=== PATIENT | male | born 1985 | race Caucasian/White ===

== ENCOUNTER 2023-12-21 09:58 | Day surgery (SDC) | payer OTHER ==
--- NOTE | 2023-12-21 08:21 | HP ---
HISTORY AND PHYSICAL HISTORY OF PRESENT ILLNESS: Patient has a history of right upper quadrant pain, some nausea and vomiting, and stool urgency. He did have a CT scan that showed cholelithiasis. PAST MEDICAL HISTORY: Denied chronic illnesses. HOME MEDICATIONS: No medications on a regular basis. ALLERGIES: Penicillin. PAST SURGICAL HISTORY: He had shoulder surgery in the past. He had rotator cuff surgery in the past. SOCIAL HISTORY: Former smoker. Occasional alcohol use. FAMILY HISTORY: Negative with regard to this problem. REVIEW OF SYSTEMS: Twelve systems reviewed. No chest pain or palpitations. Other systems negative or noncontributory as above and per preadmission questionnaire. PHYSICAL EXAMINATION: GENERAL: Height 6 feet. BMI 27.8. No acute distress. HEENT: Sclerae nonicteric. Extraocular movements intact. Oral mucous membranes moist. NECK: No JVD. CHEST: Equal excursion, nonlabored breathing. CARDIOVASCULAR: Regular rate and rhythm. ABDOMEN: Soft. Some mild tenderness in right upper quadrant. No peritoneal signs. SKIN: Dry. EXTREMITIES: No cyanosis or edema. NEUROLOGIC: Alert and oriented, moving all extremities symmetrically. PSYCHIATRIC: Appropriate mood and affect. IMPRESSION: Right upper quadrant pain, nausea and vomiting, stool urgency. I feel he has acute exacerbation of chronic cholecystitis, symptomatic cholelithiasis. Recommend cholecystectomy. He was shown the gallbladder pamphlet. Explained the procedure in detail including but not limited to risk of bleeding and infection; risk of trocar injury and hernia; risk of bile leak or bile duct injury, retained stone or sludge possibly requiring further procedure either ERCP or open procedure; general risk of anesthesia, DVT, PE, pneumonia; perioperative risk of aches and pains, bloating, constipation or loose stools possibly chronic in nature; possibility of no improvement of preoperative symptoms possibly requiring further workup, other studies, endoscopy, or referrals. He understands, agrees with planned procedure. We will proceed with laparoscopic cholecystectomy, possibly open, as an outpatient.
[2023-12-21] MEDS ORDERED: CLINDAMYCIN-D5W 900 MG/50 ML*** 900 MG/50 ML BAG IV ONE (10:09)
[2023-12-21] MEDS ORDERED: Levofloxacin 500MG/100ML D5W 500 MG/100 ML BAG IV ONE (10:09)
[2023-12-21] MEDS: Transderm Scop 1.5MG Patch TOP PRN (10:14)
[2023-12-21] MEDS: CLINDAMYCIN-D5W 900 MG/50 ML*** 900 MG/50 ML BAG IV SCH (10:14)
[2023-12-21] MEDS: Levofloxacin 500MG/100ML D5W 500 MG/100 ML BAG IV ONE (10:14)
[2023-12-21] MEDS: Lactated Ringers 1,000 ML IV SCH (10:15)
[2023-12-21 10:23] VITALS: RESP 16; O2SAT 98
[2023-12-21] MEDS ORDERED: SUBLIMAZE 100 MCG/2 ML ONE ×2 (12:32→12:43)
[2023-12-21] MEDS ORDERED: Versed 2 MG/2 ML Injection ONE (12:32)
[2023-12-21] MEDS ORDERED: DIPRIVAN 200 MG/20 ML IV ONE (12:32)
[2023-12-21] MEDS ORDERED: ROCURONIUM BROMIDE IV ONE (12:32)
[2023-12-21] MEDS ORDERED: DILAUDID 2 MG INJECTION ONE (13:30)
[2023-12-21] MEDS ORDERED: BRIDION 200MG/2ML IV ONE (13:34)
[2023-12-21] MEDS ORDERED: Zofran 4 MG/2 ML VIAL ONE (14:13)
[2023-12-21 14:52] VITALS: TEMP 97.5
[2023-12-21] MEDS ORDERED: Compazine 10 MG/2 ML ONE (15:29)
[2023-12-21] MEDS: Compazine 10 MG/2 ML IV ONE (15:33)
[2023-12-21 15:42] VITALS: BP 125/87; PULSE 62
--- NOTE | 2023-12-22 10:10 | OP ---
SURGERY DATE/TIME: 12/21/2023 2162 - [id number] PREOPERATIVE DIAGNOSIS: Acute exacerbation of chronic cholecystitis and symptomatic cholelithiasis. POSTOPERATIVE DIAGNOSIS: Acute exacerbation of chronic cholecystitis and symptomatic cholelithiasis. PROCEDURE: Laparoscopic cholecystectomy. SURGEON: Ej Carrillo MD ANESTHESIA: General. ESTIMATED BLOOD LOSS: Minimal. INDICATIONS: As above. Risks and benefits explained in detail, but not limited to. Consent obtained. DESCRIPTION OF PROCEDURE AND FINDINGS: Patient was taken to the operating room. General anesthesia was induced. Prepped and draped in usual sterile fashion. After official time-out, no disagreement in planned procedure, transverse incision made at the supraumbilical area. Fascia grasped and pulled up. Veress needle inserted. Tested with saline. Pneumoperitoneum accomplished insufflating to an open pressure of 1-15. A 5 mm bladeless port and camera were inserted without difficulty followed by two 5 mm right upper quadrant ports and an 11 mm epigastric port. The gallbladder was grasped, had some chronic inflammation and omental adhesions. These were dissected off slowly and carefully, cystic duct and infundibular junction slowly and carefully, well skeletonized until the critical view was obtained anteriorly and posteriorly. Once this was accomplished, the cystic duct and cystic artery, directly over the gallbladder wall, clipped x3 and divided in the usual fashion. Gallbladder was slowly and carefully dissected free from its dense attachments to the liver bed. It was little bit vascular, requiring clipping of additional oozing side branches off the cystic artery and cystic vein directly along the gallbladder wall. The gallbladder was slowly and carefully dissected free. Just prior to releasing the final attachments to the anterior edge liver, the liver bed reinspected. The clips were noted to be in place in the cystic duct/cystic artery stumps. No signs of any active bleeding or bile leakage. It was felt there was no benefit of any drain placement. The gallbladder was then released from the final attachments to the anterior edge liver and placed in a provided sack, pulled free and passed off. It remained in the bag but opened outside of the skin. Had multiple moderately large stones, were carefully retrieved with the [place]. Finally, the gallbladder in bag was able to be pulled free and passed off. This fascial defect was closed with puncture closure device with #1 Vicryl under direct vision and camera. Otherwise, copious amount of irrigation accomplished lateral to the liver and subhepatic space irrigating clear. Clips noted to be in place in cystic duct and cystic artery stumps. No signs of any active bleeding or bile leakage. It was felt there was no benefit of any drain placement. The pneumoperitoneum was decompressed. Wounds irrigated out. Skin incision closed with 4-0 Vicryl. Marcaine 0.25% local had been injected along each skin incision and fascial defect. The patient tolerated the procedure well. There were no immediate complications. Findings discussed with family out in the waiting area.
== END 2023-12-21 15:41 | disposition home or self-care (01) ==
LOC: SDC 09:58
PROVIDERS: ATTEND Surgery
DX: K80.10 Calculus of gallbladder with chronic cholecystitis without obstruction (principal)
CPT/HCPCS: J1170; J1956; J2250; J2405; J2704; J3010; A9270-GY